=== PATIENT | female | born 1960 | race Caucasian/White ===

== ENCOUNTER 2024-12-02 12:43 | Emergency (ER) | payer OTHER | END 2024-12-02 13:49 | disposition home or self-care (01) | LOC: NAV ERS 12:43 | DX: S70.02XA Contusion of left hip, initial encounter (principal); E11.40 Type 2 diabetes mellitus with diabetic neuropathy, unspecified; W01.0XXA Fall on same level from slipping, tripping and stumbling without subsequent striking against object, initial encounter; Y92.091 Bathroom in other non-institutional residence as the place of occurrence of the external cause; Z87.891 Personal history of nicotine dependence | CPT/HCPCS: 72170; 94760; 99283 ==